=== PATIENT | female | born 1975 | race African-American/Black ===

== ENCOUNTER 2022-07-19 13:09 | Emergency (ER) | payer OTHER ==
[2022-07-19 13:27] VITALS: BP 120/84; PULSE 84; RESP 16; TEMP 99.9; BMI 33.4
[2022-07-19] MEDS ORDERED: LIDOCAINE 5% TOPICAL PATCH TP ONE (13:55)
[2022-07-19] MEDS ORDERED: KETOROLAC TROMETHAMINE 30 MG/1 ML VIAL IM ONE (13:55)
[2022-07-19] MEDS ORDERED: LIDOCAINE 5% TOPICAL PATCH ONE (13:58)
[2022-07-19] MEDS ORDERED: KETOROLAC TROMETHAMINE 30 MG/1 ML VIAL ONE (13:58)
[2022-07-19] MEDS ORDERED: LIDOCAINE PATCH REMOVAL MC SCH (22:00)
== END 2022-07-19 14:54 | disposition home or self-care (01) ==
LOC: FER 13:09
PROC: 3E0233Z Introduction of Anti-inflammatory into Muscle, Percutaneous Approach (ICD-10-PCS; principal; 2022-07-19)
DX: M54.50 Low back pain, unspecified (principal)
CPT/HCPCS: 99284-25